=== PATIENT | female | born 1950 | race Caucasian/White ===

== ENCOUNTER 2016-05-28 15:13 | Emergency (ER) | payer MEDICARE ==
[~2016-05-28] VITALS: Ht 154.9 cm; Wt 100.0 kg
[~2016-05-28 15:13] MED LIST: ACYCLOVIR800 MG PO; AMOXICILLIN 50500 MG PO; ANTIVERT 25MG25 MG PO; ASPI325T6 PO; ASPIRIN 32325 MG/TAB PO; ASPIRIN 81M81 MG/TA2 PO; ASPIRIN E.C. 8181 MG PO; BACTRIM DS 8001 TAB PO; BENTYL 10MG10 MG/CAP; BENTYL 10MG10 MG/CAP PO; BENTYL 20MG20 MG/TAB PO; BENTYL20 MG PO; CEFTIN500 MG PO; CELEBREX200 MG PO; CELEBREX50 MG PO; CENTRUM SILVER1 CTB PO; CEPHALEXIN500 M1 PO; CIPRO 500MG TA500 MG PO; CLINDAMYCIN150 MG PO; COLCHICINE0.6 MG PO; DELZICOL; DELZICOL PO; DIFLUCAN 100MG100 MG PO; DUO-KAPS1 CAP PO; EFFIENT10 MG PO; EFFIENT5 MG; ENDOCORT; FLAGYL500 MG PO; FLEXERIL10 MG PO; IMDUR 30MG30 MG/TAB PO; IMDUR 60MG60 MG/TAB PO; IMODIUM 2MG CAPS2 MG PO; LEVAQUIN 5500 MG/TA1 PO; LEVAQUIN 750MG750 M1 PO; LIPITOR 80MG80 MG PO; LOPRESSOR 225 MG/TAB PO; LORTAB 5/500 501 TAB PO; LORTAB 7.5/5001 TAB PO; LYRICA; LYRICA 150MG C150 MG PO; LYRICA300 MG; LYRICA300 MG PO; MEDROL 4MG DOSPA4 MG PO; MS CONTIN 115 MG/TAB PO; NAPROSYN PO; NEURONTIN100 MG/CAP PO; NITROQUICK0.4 MG SL; NITROSTAT0.4 MG/TAB SL; NO HOME MEDICATIONS; NORCO 325 MG-51 TAB PO; NORCO 325 MG-7.1 TAB PO; OXYBUTYNIN5 MG PO; PAMELOR 25MG25 MG PO; PAMELOR50 MG PO; PERCOCET 325 MG1 TA2 PO; PERCOCET 325 MG1 TA3 PO; PERCOCET 325 MG1 TAB PO; PERCOCET 5/321 UDTAB PO; PHENERGAN 25 TA25 MG PO; PHENERGAN25 MG RC; PLAVIX 75MG TAB75 MG PO; PREDNISONE10 MG; PREDNISONE10 MG PO; PREDNISONE20 MG PO; PRIL40 PO; PRINZIDE 25 MG-1 TAB PO; PROMETHAZINE12.5 M5 PO; PYRIDIUM200 M1 PO; RANEXA 500MG T500 MG PO; REGLAN 10MG10 MG/TAB PO; SILVADENE CREAM1 TU TP; ULTRAM; ULTRAM 50MG TAB50 MG PO; ULTRAM100 MG PO; ULTRAM50 MG PO; VALIUM 5MG T5 MG/TAB PO; VIT B COMPLEX PO; VITAMIN B121000 MC2 PO; VOLTAREN1% TP; ZESTRIL 10MG10 MG; ZESTRIL 5MG5 MG PO; ZOFRAN 4MG T4 MG/TAB PO; ZOFRAN ODT4 MG PO; ZOFRAN8 MG PO; ZOVIRAX800 MG PO; cholesterol med PO
[2016-05-28 16:53] LABS: BASO # 0.1 (0.0-0.2); BASO % 0.4 % (0.0-2.0); EOS # 0.1 (0.0-0.7); EOS % 0.2 % (0-4.0); GRAN # 16.5 (1.4-6.5); GRAN % 68.5 % (42.2-75.2); HEMATOCRIT 43.8 % (37.0-47.0); HEMOGLOBIN 14.6 g/dl (12.5-16.0); LYMPH # 5.9 (1.2-3.4); LYMPH % 24.3 % (20.0-51.0); MEAN CELL VOLUME 89 fl (80.0-100.0); MEAN CORPUSCULAR HEMOGLOBIN 30 pg (27.0-31.0); MEAN CORPUSCULAR HGB CONC 33 g/dl (33.0-37.0); MEAN PLATELET VOLUME 9.5 fl (7.4-10.4); MONO # 1.4 (0.1-0.6); MONO % 5.9 % (1.7-9.3); PLATELET COUNT 527 K/mm3 (130-400); RED BLOOD COUNT 4.95 M/mm3 (4.10-5.30); REDCELL DISTRIBUTION WIDTH-CV 14.6 % (11.5-14.5)
[2016-05-28 16:55] LABS: WHITE BLOOD COUNT 24.2 K/mm3 (4.8-10.8)
[2016-05-28 17:13] LABS: ADJUSTED CALCIUM 9.5 mg/dL (8.4-10.2); ALBUMIN 4.7 gm/dL (3.5-5.0); BILIRUBIN,TOTAL 0.6 mg/dL (0.0-1.0); CALCIUM 10.1 mg/dL (8.4-10.2); CREATININE, serum 1.42 mg/dL (0.52-1.25); POTASSIUM 3.2 mmol/L (3.4-5.0); TOTAL PROTEIN 8.3 gm/dL (6.4-8.2)
[2016-05-28 17:22] LABS: PH 6 (5-8); URINE APPEARANCE Hazy; URINE BACTERIA Rare /hpf; URINE BILIRUBIN Negative (NEGATIVE); URINE BLOOD Negative (NEGATIVE); URINE COLOR Yellow; URINE GLUCOSE Negative (NEGATIVE); URINE KETONE Negative (NEGATIVE); URINE UROBILINOGEN Negative (NEGATIVE)
[2016-05-28] MEDS ORDERED: PERCOCET 325 MG1 TA2 PO (18:41)
[2016-05-28] MEDS ORDERED: ULTRAM 50MG TAB50 MG PO (18:41)
[2016-05-28] MEDS ORDERED: PREDNISONE20 MG PO (18:41)
[2016-05-28] MEDS ORDERED: PHENERGAN 25 TA25 MG PO (18:50)
[2016-05-28] MEDS ORDERED: PHENERGAN25 MG RC (18:50)
[2016-05-28 20:53] VITALS: BP 144/104; PULSE 85; TEMP 98.9
== END 2016-05-28 21:05 | disposition home or self-care (01) ==
LOC: COL.ER 15:13
PROVIDERS: Emergency Medicine
DX: K50.919 Crohn's disease, unspecified, with unspecified complications (principal)
CPT/HCPCS: J1170; J2550; J2930; J7030; Q9967

== ENCOUNTER 2016-07-24 15:07 | Emergency (ER) | payer MEDICARE ==
[~2016-07-24] VITALS: Ht 154.9 cm; Wt 100.0 kg
[2016-07-24 15:13] VITALS: TEMP 98.2
[2016-07-24] MEDS ORDERED: ULTRAM 50MG TAB50 MG PO ×2 (16:01→18:27)
[2016-07-24] MEDS ORDERED: PRINZIDE 25 MG-1 TAB PO (16:01)
[2016-07-24] MEDS ORDERED: LIPITOR 80MG80 MG PO (16:01)
[2016-07-24] MEDS ORDERED: LOPRESSOR 550 MG/TAB PO (16:01)
[2016-07-24 16:03] LABS: HEMATOCRIT 38.2 % (37.0-47.0); HEMOGLOBIN 12.7 g/dl (12.5-16.0); MEAN CELL VOLUME 90 fl (80.0-100.0); MEAN CORPUSCULAR HEMOGLOBIN 30 pg (27.0-31.0); MEAN CORPUSCULAR HGB CONC 33 g/dl (33.0-37.0); MEAN PLATELET VOLUME 9.8 fl (7.4-10.4); PLATELET COUNT 418 K/mm3 (130-400); RED BLOOD COUNT 4.24 M/mm3 (4.10-5.30); REDCELL DISTRIBUTION WIDTH-CV 14.4 % (11.5-14.5)
[2016-07-24 16:13] LABS: ADJUSTED CALCIUM 9.6 mg/dL (8.4-10.2); BILIRUBIN,TOTAL 0.5 mg/dL (0.0-1.0); C-REACTIVE PROTEIN 1.6 mg/dL (0.0-0.9); CALCIUM 9.6 mg/dL (8.4-10.2); CREATININE, serum 1.59 mg/dL (0.52-1.25); POTASSIUM 3.7 mmol/L (3.4-5.0); TOTAL PROTEIN 7.4 gm/dL (6.4-8.2)
[2016-07-24 16:14] LABS: ADD PATHOLOGY DIFF REVIEW NO; WHITE BLOOD COUNT 23.8 K/mm3 (4.8-10.8)
[2016-07-24] MEDS ORDERED: EFFIENT10 MG PO (16:18)
[2016-07-24] MEDS ORDERED: ASACOL HD800 MG PO (16:18)
[2016-07-24 16:27] LABS: ERYTHROCYTE SEDIMENTATION RATE 22 mm/hr (0-30)
[2016-07-24 16:31] LABS: BAND 1 % (0-10); NEUTROPHILS 76 % (42.0-75.2); TOTAL CELLS COUNTED 101
[2016-07-24 16:32] LABS: ANISOCYTOSIS 1+; HYPOCHROMIA 1+
[2016-07-24 17:08] LABS: PH 5 (5-8); URINE APPEARANCE Hazy; URINE BACTERIA Rare /hpf; URINE BILIRUBIN Negative (NEGATIVE); URINE BLOOD Negative (NEGATIVE); URINE COLOR Yellow; URINE GLUCOSE Negative (NEGATIVE); URINE KETONE Negative (NEGATIVE); URINE RBC 0-2 /hpf; URINE UROBILINOGEN Negative (NEGATIVE)
[2016-07-24] MEDS ORDERED: PHENERGAN 25 TA25 MG PO (18:27)
[2016-07-24] MEDS ORDERED: CIPRO 500MG TA500 MG PO (18:27)
[2016-07-24] MEDS ORDERED: FLAGYL500 MG PO (18:27)
[2016-07-24 18:40] VITALS: BP 133/84; PULSE 90
== END 2016-07-24 18:40 | disposition home or self-care (01) ==
LOC: COL.ER 15:07
PROVIDERS: Emergency Medicine
DX: N39.0 Urinary tract infection, site not specified (principal); B96.1 Klebsiella pneumoniae [K. pneumoniae] as the cause of diseases classified elsewhere; K50.90 Crohn's disease, unspecified, without complications
CPT/HCPCS: J1170; J1200; J2405; J7030

== ENCOUNTER 2016-08-14 20:32 | Emergency (ER) | payer MEDICARE ==
[~2016-08-14] VITALS: Ht 154.9 cm; Wt 95.5 kg
[~2016-08-14 20:32] MED LIST changes: +ASACOL HD800 MG PO; +LOPRESSOR 550 MG/TAB PO
[2016-08-14 20:41] VITALS: TEMP 99.2
[2016-08-14 22:01] LABS: PH 5 (5-8); URINE APPEARANCE Cloudy; URINE BACTERIA Rare /hpf; URINE BILIRUBIN Negative (NEGATIVE); URINE BLOOD Negative (NEGATIVE); URINE COLOR Yellow; URINE GLUCOSE Negative (NEGATIVE); URINE KETONE Negative (NEGATIVE); URINE UROBILINOGEN Negative (NEGATIVE)
[2016-08-14 22:05] LABS: BASO # 0.1 (0.0-0.2); BASO % 0.6 % (0.0-2.0); EOS # 0.2 (0.0-0.7); EOS % 1.1 % (0-4.0); GRAN # 9.9 (1.4-6.5); GRAN % 66.4 % (42.2-75.2); HEMATOCRIT 40.4 % (37.0-47.0); HEMOGLOBIN 13.6 g/dl (12.5-16.0); LYMPH # 3.8 (1.2-3.4); LYMPH % 25.2 % (20.0-51.0); MEAN CELL VOLUME 89 fl (80.0-100.0); MEAN CORPUSCULAR HEMOGLOBIN 30 pg (27.0-31.0); MEAN CORPUSCULAR HGB CONC 34 g/dl (33.0-37.0); MEAN PLATELET VOLUME 9.8 fl (7.4-10.4); MONO % 6.4 % (1.7-9.3); PLATELET COUNT 400 K/mm3 (130-400); RED BLOOD COUNT 4.52 M/mm3 (4.10-5.30); REDCELL DISTRIBUTION WIDTH-CV 14.3 % (11.5-14.5); WHITE BLOOD COUNT 14.9 K/mm3 (4.8-10.8)
[2016-08-14 22:31] LABS: ADJUSTED CALCIUM 9.2 mg/dL (8.4-10.2); ALBUMIN 4.4 gm/dL (3.5-5.0); BILIRUBIN,TOTAL 0.7 mg/dL (0.0-1.0); C-REACTIVE PROTEIN 1.7 mg/dL (0.0-0.9); CALCIUM 9.5 mg/dL (8.4-10.2); CREATININE, serum 1.2 mg/dL (0.52-1.25); POTASSIUM 3.7 mmol/L (3.4-5.0); TOTAL PROTEIN 7.5 gm/dL (6.4-8.2)
[2016-08-14] MEDS ORDERED: FLAGYL 250250 MG/TAB PO (22:57)
[2016-08-14] MEDS ORDERED: CIPRO 500MG TA500 MG PO (22:57)
[2016-08-14] MEDS ORDERED: ULTRAM 50MG TAB50 MG PO (22:57)
[2016-08-14 23:18] VITALS: BP 121/71; PULSE 102
== END 2016-08-14 23:18 | disposition home or self-care (01) ==
LOC: COL.ER 20:32
PROVIDERS: Emergency Medicine
DX: R10.31 Right lower quadrant pain (principal); K50.90 Crohn's disease, unspecified, without complications; I25.10 Atherosclerotic heart disease of native coronary artery without angina pectoris; I10 Essential (primary) hypertension
CPT/HCPCS: J1170; J2405; J7030

== ENCOUNTER 2016-09-13 16:06 | Emergency (ER) | payer MEDICARE ==
[~2016-09-13] VITALS: Ht 154.9 cm; Wt 95.5 kg
[~2016-09-13 16:06] MED LIST changes: +FLAGYL 250250 MG/TAB PO
[2016-09-13 16:08] VITALS: TEMP 98.6
[2016-09-13] MEDS ORDERED: BENADRYL25 M2 PO (16:40)
[2016-09-13 17:00] LABS: ADD PATHOLOGY DIFF REVIEW NO
[2016-09-13 17:11] LABS: HEMATOCRIT 40.4 % (37.0-47.0); HEMOGLOBIN 13.6 g/dl (12.5-16.0); MEAN CELL VOLUME 89 fl (80.0-100.0); MEAN CORPUSCULAR HEMOGLOBIN 30 pg (27.0-31.0); MEAN CORPUSCULAR HGB CONC 34 g/dl (33.0-37.0); MEAN PLATELET VOLUME 9.6 fl (7.4-10.4); PLATELET COUNT 420 K/mm3 (130-400); RED BLOOD COUNT 4.54 M/mm3 (4.10-5.30); REDCELL DISTRIBUTION WIDTH-CV 14.2 % (11.5-14.5); WHITE BLOOD COUNT 14.9 K/mm3 (4.8-10.8)
[2016-09-13 17:18] LABS: ADJUSTED CALCIUM 8.9 mg/dL (8.4-10.2); ALANINE AMINOTRANSFERASE 19 U/L (9-52); ALBUMIN 4.4 gm/dL (3.5-5.0); ALKALINE PHOSPHATASE 100 U/L (50-136); ANION GAP 13 mmol/L (7-16); BILIRUBIN,TOTAL 0.6 mg/dL (0.0-1.0); BLOOD UREA NITROGEN 18 mg/dL (7-17); C-REACTIVE PROTEIN 2.6 mg/dL (0.0-0.9); CALCIUM 9.2 mg/dL (8.4-10.2); CARBON DIOXIDE 20 mmol/L (22-30); CHLORIDE 109 mmol/L (98-107); CREATININE, serum 1.11 mg/dL (0.52-1.25); GLUCOSE 96 mg/dL (74-106); MAGNESIUM 2.2 mg/dL (1.6-2.3); POTASSIUM 3.7 mmol/L (3.4-5.0); SODIUM 142 mmol/L (137-145); TOTAL PROTEIN 7.5 gm/dL (6.4-8.2)
[2016-09-13 17:29] LABS: BASOPHIL 1 % (0-2); EOSINOPHIL 1 % (0-4); NEUTROPHILS 78 % (42.0-75.2); TOTAL CELLS COUNTED 100
[2016-09-13 17:30] LABS: ANISOCYTOSIS 1+; ROULEAUX 1+
[2016-09-13 17:38] LABS: PH 6 (5-8); URINE APPEARANCE Hazy; URINE BACTERIA Rare /hpf; URINE BILIRUBIN Negative (NEGATIVE); URINE BLOOD 1+ (NEGATIVE); URINE COLOR Yellow; URINE GLUCOSE Negative (NEGATIVE); URINE KETONE Negative (NEGATIVE); URINE UROBILINOGEN Negative (NEGATIVE)
[2016-09-13 17:39] LABS: ERYTHROCYTE SEDIMENTATION RATE 21 mm/hr (0-30)
[2016-09-13 17:48] VITALS: BP 135/84
[2016-09-13] MEDS ORDERED: ANTIVERT 25MG25 MG PO (17:49)
[2016-09-13] MEDS ORDERED: PHENERGAN 25 TA25 MG PO (17:49)
[2016-09-13 18:35] LABS: TROPONIN-I < 0.012 ng/mL (0.000-0.034)
[2016-09-13 19:55] VITALS: PULSE 94
== END 2016-09-13 20:10 | disposition home or self-care (01) ==
LOC: COL.ER 16:06
PROVIDERS: Emergency Medicine
DX: R10.31 Right lower quadrant pain (principal); G89.29 Other chronic pain; R00.2 Palpitations; K50.90 Crohn's disease, unspecified, without complications; R42 Dizziness and giddiness
CPT/HCPCS: J1200; J2550; J3010; J7030

== ENCOUNTER 2016-09-18 14:16 | Emergency (ER) | payer MEDICARE ==
[~2016-09-18] VITALS: Ht 154.9 cm; Wt 100.0 kg
[~2016-09-18 14:16] MED LIST changes: +BENADRYL25 M2 PO
[2016-09-18 14:22] VITALS: TEMP 99.4
[2016-09-18] MEDS ORDERED: IMODIUM 2MG CAPS2 MG PO (14:50)
[2016-09-18] MEDS ORDERED: ASPIRIN 81M81 MG/TA2 PO (14:53)
[2016-09-18 15:50] LABS: BASO # 0.1 (0.0-0.2); BASO % 0.6 % (0.0-2.0); EOS # 0.2 (0.0-0.7); EOS % 1.6 % (0-4.0); GRAN # 10.3 (1.4-6.5); GRAN % 70.6 % (42.2-75.2); HEMATOCRIT 41.1 % (37.0-47.0); HEMOGLOBIN 13.7 g/dl (12.5-16.0); LYMPH # 3.1 (1.2-3.4); LYMPH % 21.5 % (20.0-51.0); MEAN CELL VOLUME 89 fl (80.0-100.0); MEAN CORPUSCULAR HEMOGLOBIN 30 pg (27.0-31.0); MEAN CORPUSCULAR HGB CONC 33 g/dl (33.0-37.0); MEAN PLATELET VOLUME 9.4 fl (7.4-10.4); MONO # 0.8 (0.1-0.6); MONO % 5.2 % (1.7-9.3); PLATELET COUNT 415 K/mm3 (130-400); REDCELL DISTRIBUTION WIDTH-CV 14.3 % (11.5-14.5); WHITE BLOOD COUNT 14.6 K/mm3 (4.8-10.8)
[2016-09-18 16:01] LABS: ADJUSTED CALCIUM 8.6 mg/dL (8.4-10.2); ALBUMIN 4.4 gm/dL (3.5-5.0); BILIRUBIN,TOTAL 0.7 mg/dL (0.0-1.0); C-REACTIVE PROTEIN 2.9 mg/dL (0.0-0.9); CALCIUM 8.9 mg/dL (8.4-10.2); CREATININE, serum 1.04 mg/dL (0.52-1.25); POTASSIUM 3.5 mmol/L (3.4-5.0); TOTAL PROTEIN 7.7 gm/dL (6.4-8.2)
[2016-09-18] MEDS ORDERED: PREDNISONE20 MG PO (16:37)
[2016-09-18] MEDS ORDERED: PHENERGAN 25 TA25 MG PO (16:39)
[2016-09-18] MEDS ORDERED: PHENERGAN25 MG RC (16:39)
[2016-09-18 17:44] VITALS: BP 144/89; PULSE 80
== END 2016-09-18 17:47 | disposition home or self-care (01) ==
LOC: COL.ER 14:16
PROVIDERS: Emergency Medicine
DX: K50.90 Crohn's disease, unspecified, without complications (principal); R11.2 Nausea with vomiting, unspecified; I10 Essential (primary) hypertension; I25.10 Atherosclerotic heart disease of native coronary artery without angina pectoris; K22.70 Barrett's esophagus without dysplasia; Z95.5 Presence of coronary angioplasty implant and graft
CPT/HCPCS: J1170; J2405; J2930; J7030

== ENCOUNTER 2016-10-06 14:34 | Emergency (ER) | payer MEDICARE ==
[~2016-10-06] VITALS: Ht 154.9 cm; Wt 100.0 kg
[2016-10-06 14:36] VITALS: TEMP 98.2
[2016-10-06] MEDS ORDERED: ASPIRIN 32325 MG/TAB PO (14:49)
[2016-10-06] MEDS ORDERED: ULTRAM 50MG TAB50 MG PO (14:50)
[2016-10-06 15:16] LABS: PH 6 (5-8); URINE APPEARANCE Clear; URINE BACTERIA Rare /hpf; URINE BILIRUBIN Negative (NEGATIVE); URINE BLOOD Negative (NEGATIVE); URINE COLOR Yellow; URINE GLUCOSE Negative (NEGATIVE); URINE KETONE Negative (NEGATIVE); URINE RBC 0-2 /hpf; URINE UROBILINOGEN Negative (NEGATIVE)
[2016-10-06 15:43] LABS: HEMATOCRIT 41.6 % (37.0-47.0); HEMOGLOBIN 13.8 g/dl (12.5-16.0); MEAN CELL VOLUME 89 fl (80.0-100.0); MEAN CORPUSCULAR HEMOGLOBIN 30 pg (27.0-31.0); MEAN CORPUSCULAR HGB CONC 33 g/dl (33.0-37.0); MEAN PLATELET VOLUME 9.5 fl (7.4-10.4); PLATELET COUNT 439 K/mm3 (130-400); RED BLOOD COUNT 4.66 M/mm3 (4.10-5.30); REDCELL DISTRIBUTION WIDTH-CV 14.4 % (11.5-14.5)
[2016-10-06 15:45] LABS: ADD PATHOLOGY DIFF REVIEW NO
[2016-10-06 16:06] LABS: BAND 1 % (0-10); NEUTROPHILS 85 % (42.0-75.2); TOTAL CELLS COUNTED 100
[2016-10-06 16:08] LABS: ANISOCYTOSIS 1+
[2016-10-06 16:12] LABS: ADJUSTED CALCIUM 9.5 mg/dL (8.4-10.2); ALBUMIN 4.4 gm/dL (3.5-5.0); BILIRUBIN,TOTAL 0.6 mg/dL (0.0-1.0); CALCIUM 9.8 mg/dL (8.4-10.2); CREATININE, serum 1.57 mg/dL (0.52-1.25); TOTAL PROTEIN 7.5 gm/dL (6.4-8.2)
[2016-10-06] MEDS ORDERED: PHENERGAN 25 TA25 MG PO (16:59)
[2016-10-06 18:21] VITALS: BP 144/81; PULSE 63
== END 2016-10-06 18:22 | disposition home or self-care (01) ==
LOC: COL.ER 14:34
PROVIDERS: Emergency Medicine
DX: R10.11 Right upper quadrant pain (principal); R11.10 Vomiting, unspecified; R19.7 Diarrhea, unspecified
CPT/HCPCS: J2405; J2550; J7030

== ENCOUNTER 2016-10-16 22:13 | Observation (INO) | payer MEDICARE ==
[~2016-10-16] VITALS: Ht 154.9 cm; Wt 97.9 kg
[2016-10-16 22:50] LABS: HEMATOCRIT 43.3 % (37.0-47.0); HEMOGLOBIN 14.5 g/dl (12.5-16.0); MEAN CELL VOLUME 88 fl (80.0-100.0); MEAN CORPUSCULAR HEMOGLOBIN 30 pg (27.0-31.0); MEAN CORPUSCULAR HGB CONC 34 g/dl (33.0-37.0); MEAN PLATELET VOLUME 9.5 fl (7.4-10.4); PLATELET COUNT 487 K/mm3 (130-400); REDCELL DISTRIBUTION WIDTH-CV 14.7 % (11.5-14.5)
[2016-10-16 22:56] LABS: WHITE BLOOD COUNT 21.6 K/mm3 (4.8-10.8)
[2016-10-16 22:57] LABS: ADD PATHOLOGY DIFF REVIEW NO; INR 1.1 (0.8-3.0); PROTHROMBIN TIME 11.8 SECONDS (9.7-12.8)
[2016-10-16 23:00] LABS: PARTIAL THROMBOPLASTIN TIME 30.8 SECONDS (26.0-37.0)
[2016-10-16 23:06] LABS: ADJUSTED CALCIUM 9.8 mg/dL (8.4-10.2); ALANINE AMINOTRANSFERASE 42 U/L (9-52); ALKALINE PHOSPHATASE 93 U/L (50-136); ANION GAP 17 mmol/L (7-16); BILIRUBIN,TOTAL 0.7 mg/dL (0.0-1.0); BLOOD UREA NITROGEN 35 mg/dL (7-17); CALCIUM 9.8 mg/dL (8.4-10.2); CARBON DIOXIDE 18 mmol/L (22-30); CHLORIDE 105 mmol/L (98-107); CREATININE, serum 1.22 mg/dL (0.52-1.25); GLUCOSE 101 mg/dL (74-106); LIPASE 272 U/L (23-300); POTASSIUM 3.7 mmol/L (3.4-5.0); SODIUM 139 mmol/L (137-145); TOTAL PROTEIN 6.8 gm/dL (6.4-8.2)
[2016-10-16 23:19] LABS: B-TYPE NATRIURETIC PEPTIDE 171 pg/mL (0-125)
[2016-10-16 23:20] LABS: TROPONIN-I < 0.012 ng/mL (0.000-0.034)
[2016-10-16 23:21] LABS: EOSINOPHIL 2 % (0-4); NEUTROPHILS 62 % (42.0-75.2); TOTAL CELLS COUNTED 100
[2016-10-16 23:22] LABS: PLATELET ESTIMATE INCREASED (NORMAL)
[2016-10-16 23:38] LABS: PH 5 (5-8); SQUAMOUS EPITHELIAL 0-2 /hpf; URINE APPEARANCE Clear; URINE BACTERIA None Seen /hpf; URINE BILIRUBIN Negative (NEGATIVE); URINE BLOOD Negative (NEGATIVE); URINE COLOR Yellow; URINE GLUCOSE Negative (NEGATIVE); URINE KETONE Negative (NEGATIVE); URINE RBC 0-2 /hpf; URINE UROBILINOGEN Negative (NEGATIVE); URINE WBC 0-2 /hpf
[2016-10-17] VITALS (106 sets, daily range): BP systolic 93–141; BP diastolic 70–79; PULSE 85–111; TEMP 97.3–98.3; O2SAT 94–100
[2016-10-17 00:53] LABS: MAGNESIUM 2.3 mg/dL (1.6-2.3)
[2016-10-17] MEDS ORDERED: ASACOL HD800 MG PO (01:10)
[2016-10-17 07:28] LABS: TROPONIN-I < 0.012 ng/mL (0.000-0.034)
[2016-10-17 07:29] LABS: CHOLESTEROL 164 mg/dL (120-200); HDL CHOLESTEROL 50 mg/dL; LDL CHOLESTEROL 75 mg/dL; TRIGLYCERIDE 194 mg/dL
[2016-10-17] MEDS ORDERED: PROTONIX 40MG T40 MG PO (11:05)
[2016-10-17] MEDS ORDERED: PERCOCET 325 MG1 TA2 PO (11:06)
[2016-10-17] MEDS ORDERED: ULTRAM 50MG TAB50 MG PO (14:38)
== END 2016-10-17 16:05 | disposition home or self-care (01) ==
LOC: COL.ER 22:13 → IMCU 10-17 00:09 → ICU 10-17 00:09 → IMCU 10-17 02:18
PROVIDERS: Emergency Medicine; Family Medicine
DX: K20.9 Esophagitis, unspecified (principal); R00.0 Tachycardia, unspecified; E66.9 Obesity, unspecified; K50.90 Crohn's disease, unspecified, without complications; I10 Essential (primary) hypertension; I25.10 Atherosclerotic heart disease of native coronary artery without angina pectoris; E78.5 Hyperlipidemia, unspecified; M19.90 Unspecified osteoarthritis, unspecified site; K22.70 Barrett's esophagus without dysplasia; Z95.5 Presence of coronary angioplasty implant and graft
CPT/HCPCS: A9502; G0378; J2270; J2405; J2785; J7030; Q9967

== ENCOUNTER 2016-12-18 14:01 | Emergency (ER) | payer MEDICARE ==
[~2016-12-18] VITALS: Ht 154.9 cm; Wt 98.4 kg
[~2016-12-18 14:01] MED LIST changes: +PROTONIX 40MG T40 MG PO
[2016-12-18 14:11] VITALS: TEMP 98.9
[2016-12-18 15:13] LABS: BASO # 0.1 (0.0-0.2); BASO % 0.6 % (0.0-2.0); EOS # 0.2 (0.0-0.7); EOS % 1.2 % (0-4.0); GRAN % 71.6 % (42.2-75.2); HEMATOCRIT 42.4 % (37.0-47.0); HEMOGLOBIN 14.1 g/dl (12.5-16.0); LYMPH % 19.7 % (20.0-51.0); MEAN CELL VOLUME 89 fl (80.0-100.0); MEAN CORPUSCULAR HEMOGLOBIN 30 pg (27.0-31.0); MEAN CORPUSCULAR HGB CONC 33 g/dl (33.0-37.0); MEAN PLATELET VOLUME 9.7 fl (7.4-10.4); MONO % 6.4 % (1.7-9.3); PLATELET COUNT 433 K/mm3 (130-400); RED BLOOD COUNT 4.78 M/mm3 (4.10-5.30); REDCELL DISTRIBUTION WIDTH-CV 15.3 % (11.5-14.5); WHITE BLOOD COUNT 15.4 K/mm3 (4.8-10.8)
[2016-12-18 15:18] LABS: PH 5 (5-8); SQUAMOUS EPITHELIAL 20-50 /hpf; URINE APPEARANCE Cloudy; URINE BACTERIA Moderate /hpf; URINE BILIRUBIN Negative (NEGATIVE); URINE BLOOD Negative (NEGATIVE); URINE COLOR Yellow; URINE GLUCOSE Negative (NEGATIVE); URINE KETONE Negative (NEGATIVE); URINE RBC 0-2 /hpf; URINE UROBILINOGEN Negative (NEGATIVE)
[2016-12-18 15:25] LABS: ADJUSTED CALCIUM 9.3 mg/dL (8.4-10.2); ALBUMIN 4.4 gm/dL (3.5-5.0); BILIRUBIN,TOTAL 0.7 mg/dL (0.0-1.0); C-REACTIVE PROTEIN 2.8 mg/dL (0.0-0.9); CALCIUM 9.6 mg/dL (8.4-10.2); CREATININE, serum 1.51 mg/dL (0.52-1.25); POTASSIUM 3.9 mmol/L (3.4-5.0); TOTAL PROTEIN 7.7 gm/dL (6.4-8.2)
[2016-12-18] MEDS ORDERED: PHENERGAN 25 TA25 MG PO (17:04)
[2016-12-18 18:14] VITALS: BP 114/84; PULSE 91
== END 2016-12-18 18:10 | disposition home or self-care (01) ==
LOC: COL.ER 14:01
PROVIDERS: Emergency Medicine
DX: R10.11 Right upper quadrant pain (principal); Z87.19 Personal history of other diseases of the digestive system; Z90.710 Acquired absence of both cervix and uterus; Z90.49 Acquired absence of other specified parts of digestive tract; Z90.89 Acquired absence of other organs; Z79.82 Long term (current) use of aspirin
CPT/HCPCS: J1100; J1170; J1200; J2060; J2405; J2550; J7030

== ENCOUNTER 2017-01-10 13:31 | Observation (INO) | payer MEDICARE ==
[~2017-01-10] VITALS: Ht 154.9 cm; Wt 98.2 kg
[2017-01-10 16:12] LABS: HEMATOCRIT 45.9 % (37.0-47.0); HEMOGLOBIN 15.4 g/dl (12.5-16.0); MEAN CELL VOLUME 88 fl (80.0-100.0); MEAN CORPUSCULAR HEMOGLOBIN 29 pg (27.0-31.0); MEAN CORPUSCULAR HGB CONC 34 g/dl (33.0-37.0); MEAN PLATELET VOLUME 9.9 fl (7.4-10.4); PLATELET COUNT 482 K/mm3 (130-400); RED BLOOD COUNT 5.23 M/mm3 (4.10-5.30); REDCELL DISTRIBUTION WIDTH-CV 15.3 % (11.5-14.5)
[2017-01-10 16:15] LABS: ADD PATHOLOGY DIFF REVIEW NO; WHITE BLOOD COUNT 21.8 K/mm3 (4.8-10.8)
[2017-01-10 16:23] LABS: ADJUSTED CALCIUM 9.6 mg/dL (8.4-10.2); ALBUMIN 4.8 gm/dL (3.5-5.0); BILIRUBIN,TOTAL 0.8 mg/dL (0.0-1.0); C-REACTIVE PROTEIN 1.9 mg/dL (0.0-0.9); CALCIUM 10.2 mg/dL (8.4-10.2); CREATININE, serum 1.32 mg/dL (0.52-1.25); POTASSIUM 3.9 mmol/L (3.4-5.0); TOTAL PROTEIN 8.2 gm/dL (6.4-8.2)
[2017-01-10 16:33] LABS: BAND 1 % (0-10); NEUTROPHILS 81 % (42.0-75.2); TOTAL CELLS COUNTED 100
[2017-01-10 16:34] LABS: PLATELET ESTIMATE INCREASED (NORMAL)
[2017-01-10 21:26] LABS: PH 5 (5-8); SQUAMOUS EPITHELIAL 0-2 /hpf; URINE APPEARANCE Hazy; URINE BACTERIA Rare /hpf; URINE BILIRUBIN Negative (NEGATIVE); URINE BLOOD 1+ (NEGATIVE); URINE COLOR Yellow; URINE GLUCOSE Negative (NEGATIVE); URINE KETONE Negative (NEGATIVE); URINE RBC 0-2 /hpf; URINE UROBILINOGEN Negative (NEGATIVE)
[2017-01-10 21:49] VITALS: BP 114/81; PULSE 73; TEMP 98.2
[2017-01-10 23:31] VITALS: BP 130/91; PULSE 67; TEMP 97.9
[2017-01-11 03:35] VITALS: BP 126/76; PULSE 73; TEMP 98.2
[2017-01-11 07:51] VITALS: BP 143/77; PULSE 77; TEMP 97.4
[2017-01-11 11:23] LABS: HEMATOCRIT 38.7 % (37.0-47.0); MEAN CELL VOLUME 90 fl (80.0-100.0); MEAN CORPUSCULAR HGB CONC 33 g/dl (33.0-37.0); MEAN PLATELET VOLUME 10.2 fl (7.4-10.4); RED BLOOD COUNT 4.29 M/mm3 (4.10-5.30); REDCELL DISTRIBUTION WIDTH-CV 15.6 % (11.5-14.5)
[2017-01-11 11:29] LABS: HEMOGLOBIN 12.7 g/dl (12.5-16.0); MEAN CORPUSCULAR HEMOGLOBIN 30 pg (27.0-31.0); PLATELET COUNT 377 K/mm3 (130-400); WHITE BLOOD COUNT 26.9 K/mm3 (4.8-10.8)
[2017-01-11 11:30] LABS: ADD PATHOLOGY DIFF REVIEW NO
[2017-01-11 11:31] LABS: ADJUSTED CALCIUM 8.5 mg/dL (8.4-10.2); ALBUMIN 3.9 gm/dL (3.5-5.0); BILIRUBIN,TOTAL 0.5 mg/dL (0.0-1.0); CALCIUM 8.4 mg/dL (8.4-10.2); CREATININE, serum 0.98 mg/dL (0.52-1.25); POTASSIUM 4.2 mmol/L (3.4-5.0); TOTAL PROTEIN 6.7 gm/dL (6.4-8.2)
[2017-01-11 12:13] VITALS: BP 113/60; PULSE 65; TEMP 97.4
[2017-01-11 12:56] LABS: BAND 7 % (0-10); EOSINOPHIL 1 % (0-4)
[2017-01-11 12:57] LABS: TOTAL CELLS COUNTED 100
[2017-01-11 12:58] LABS: NEUTROPHILS 81 % (42.0-75.2)
[2017-01-11 15:47] VITALS: BP 124/72; PULSE 71; TEMP 98.2
[2017-01-11 19:17] VITALS: BP 132/65; PULSE 69; TEMP 98
[2017-01-11 23:20] VITALS: BP 114/62; PULSE 70; TEMP 98.9
[2017-01-12 03:51] VITALS: BP 100/66; PULSE 62; TEMP 97.4
[2017-01-12 07:28] VITALS: BP 122/62; PULSE 70; TEMP 97.3
[2017-01-12 10:32] LABS: CALCIUM 8.1 mg/dL (8.4-10.2); CREATININE, serum 0.97 mg/dL (0.52-1.25); POTASSIUM 4.2 mmol/L (3.4-5.0)
[2017-01-12 10:56] VITALS: BP 117/67; PULSE 62; TEMP 97.8
[2017-01-12 11:31] LABS: BASO # 0.1 (0.0-0.2); BASO % 0.4 % (0.0-2.0); EOS # 0.2 (0.0-0.7); EOS % 1.2 % (0-4.0); GRAN # 11.4 (1.4-6.5); GRAN % 64.5 % (42.2-75.2); HEMATOCRIT 39.3 % (37.0-47.0); HEMOGLOBIN 12.4 g/dl (12.5-16.0); LYMPH # 4.6 (1.2-3.4); LYMPH % 26.2 % (20.0-51.0); MEAN CELL VOLUME 93 fl (80.0-100.0); MEAN CORPUSCULAR HEMOGLOBIN 29 pg (27.0-31.0); MEAN CORPUSCULAR HGB CONC 32 g/dl (33.0-37.0); MEAN PLATELET VOLUME 10.9 fl (7.4-10.4); MONO # 1.3 (0.1-0.6); MONO % 7.2 % (1.7-9.3); PLATELET COUNT 305 K/mm3 (130-400); RED BLOOD COUNT 4.23 M/mm3 (4.10-5.30); WHITE BLOOD COUNT 17.6 K/mm3 (4.8-10.8)
[2017-01-12 12:04] LABS: CALCIUM 8.2 mg/dL (8.4-10.2); CREATININE, serum 1.01 mg/dL (0.52-1.25); POTASSIUM 3.8 mmol/L (3.4-5.0)
[2017-01-12 14:52] VITALS: BP 117/71; PULSE 73; TEMP 99
[2017-01-12] MEDS ORDERED: LEVBID0.375 MG PO (16:43)
[2017-01-12 17:26] LABS: ARTERIAL BLD GAS O2 SATURATION 96.4 % (92-100); ARTERIAL BLD GAS TCO2 CT 17.3; ARTERIAL BLOOD GAS BASE EXCESS -6.3 (-2-2); ARTERIAL BLOOD GAS HCO3 16.5 meq/L (22-26); ARTERIAL BLOOD GAS PHT 7.42 C (7.35-7.45); ARTERIAL BLOOD GAS PO2 83.7 mmHg (80-100); ARTERIAL BLOOD GAS PO2T 83.7 (80-100); ARTERIAL BLOOD GAS pH 7.42 (7.35-7.45); OXYHEMOGLOBIN 96.1 %
[2017-01-12 17:27] LABS: ATS? YES
[2017-01-12 18:14] VITALS: BP 120/77; PULSE 65; TEMP 98.2
[2017-01-13 00:07] VITALS: BP 131/75; PULSE 70; TEMP 98.2
[2017-01-13 04:37] VITALS: BP 106/68; PULSE 68; TEMP 98
[2017-01-13 07:19] LABS: BASO # 0.1 (0.0-0.2); BASO % 0.6 % (0.0-2.0); EOS # 0.3 (0.0-0.7); EOS % 2.2 % (0-4.0); GRAN # 9.2 (1.4-6.5); GRAN % 63.3 % (42.2-75.2); LYMPH # 3.8 (1.2-3.4); LYMPH % 26.3 % (20.0-51.0); MEAN CELL VOLUME 91 fl (80.0-100.0); MEAN CORPUSCULAR HEMOGLOBIN 30 pg (27.0-31.0); MEAN CORPUSCULAR HGB CONC 33 g/dl (33.0-37.0); MEAN PLATELET VOLUME 10.3 fl (7.4-10.4); PLATELET COUNT 326 K/mm3 (130-400); RED BLOOD COUNT 4.03 M/mm3 (4.10-5.30); REDCELL DISTRIBUTION WIDTH-CV 15.7 % (11.5-14.5); WHITE BLOOD COUNT 14.5 K/mm3 (4.8-10.8)
[2017-01-13 07:26] VITALS: BP 113/58; PULSE 69; TEMP 98.1
[2017-01-13 07:28] LABS: CALCIUM 8.2 mg/dL (8.4-10.2); CREATININE, serum 0.96 mg/dL (0.52-1.25); HEMATOCRIT 36.7 % (37.0-47.0); POTASSIUM 3.6 mmol/L (3.4-5.0)
[2017-01-13] MEDS ORDERED: ZOFRAN 4MG T4 MG/TAB PO (10:34)
[2017-01-13 10:58] VITALS: BP 120/61; PULSE 62; TEMP 97.9
== END 2017-01-13 14:34 | disposition home or self-care (01) ==
LOC: COL.ER 13:31 → MEDICAL 17:22
PROVIDERS: Family Medicine; Physician Assistant
DX: K29.50 Unspecified chronic gastritis without bleeding (principal); K21.0 Gastro-esophageal reflux disease with esophagitis; K44.9 Diaphragmatic hernia without obstruction or gangrene; K64.0 First degree hemorrhoids; I25.10 Atherosclerotic heart disease of native coronary artery without angina pectoris; I10 Essential (primary) hypertension; E86.0 Dehydration; K22.70 Barrett's esophagus without dysplasia; M19.90 Unspecified osteoarthritis, unspecified site; I25.2 Old myocardial infarction; Z95.5 Presence of coronary angioplasty implant and graft; Z90.710 Acquired absence of both cervix and uterus; Z90.49 Acquired absence of other specified parts of digestive tract; Z90.722 Acquired absence of ovaries, bilateral; Z83.79 Family history of other diseases of the digestive system
CPT/HCPCS: 99223-AI; 99232-AI; 99239; G0378; J1170; J1650; J2405; J2704; J2765; J2930; J7030

== ENCOUNTER 2017-02-07 01:04 | Emergency (ER) | payer MEDICARE ==
[~2017-02-07] VITALS: Ht 154.9 cm; Wt 91.4 kg
[~2017-02-07 01:04] MED LIST changes: +LEVBID0.375 MG PO
[2017-02-07 02:13] LABS: BASO # 0.1 (0.0-0.2); BASO % 0.5 % (0.0-2.0); EOS # 0.2 (0.0-0.7); EOS % 1.2 % (0-4.0); GRAN # 9.4 (1.4-6.5); GRAN % 64.6 % (42.2-75.2); HEMATOCRIT 39.1 % (37.0-47.0); HEMOGLOBIN 13.1 g/dl (12.5-16.0); LYMPH # 3.9 (1.2-3.4); LYMPH % 26.6 % (20.0-51.0); MEAN CELL VOLUME 89 fl (80.0-100.0); MEAN CORPUSCULAR HEMOGLOBIN 30 pg (27.0-31.0); MEAN CORPUSCULAR HGB CONC 34 g/dl (33.0-37.0); MEAN PLATELET VOLUME 9.7 fl (7.4-10.4); MONO % 6.6 % (1.7-9.3); PLATELET COUNT 433 K/mm3 (130-400); RED BLOOD COUNT 4.38 M/mm3 (4.10-5.30); REDCELL DISTRIBUTION WIDTH-CV 14.1 % (11.5-14.5); WHITE BLOOD COUNT 14.6 K/mm3 (4.8-10.8)
[2017-02-07 02:26] LABS: CREATININE, serum 1.16 mg/dL (0.52-1.25); POTASSIUM 3.4 mmol/L (3.4-5.0)
[2017-02-07 02:27] LABS: CALCIUM 9.3 mg/dL (8.4-10.2)
[2017-02-07 02:28] LABS: ADJUSTED CALCIUM 9.3 mg/dL (8.4-10.2); BILIRUBIN,TOTAL 0.4 mg/dL (0.0-1.0); TOTAL PROTEIN 7.2 gm/dL (6.4-8.2)
[2017-02-07 02:48] LABS: INR 1.1 (0.8-3.0); PROTHROMBIN TIME 12.2 SECONDS (9.7-12.8)
[2017-02-07 02:50] LABS: PARTIAL THROMBOPLASTIN TIME 33.8 SECONDS (26.0-37.0)
[2017-02-07] MEDS ORDERED: ZITHROMAX500 M2 PO (03:42)
[2017-02-07 04:26] VITALS: BP 108/75; PULSE 85; TEMP 97.9
== END 2017-02-07 04:25 | disposition home or self-care (01) ==
LOC: COL.ER 01:04
PROVIDERS: Emergency Medicine
DX: J20.9 Acute bronchitis, unspecified (principal); I10 Essential (primary) hypertension; I25.10 Atherosclerotic heart disease of native coronary artery without angina pectoris; K50.90 Crohn's disease, unspecified, without complications; Z95.5 Presence of coronary angioplasty implant and graft; Z90.49 Acquired absence of other specified parts of digestive tract; Z90.710 Acquired absence of both cervix and uterus; Z90.89 Acquired absence of other organs; Z98.890 Other specified postprocedural states; Z79.82 Long term (current) use of aspirin
CPT/HCPCS: J0696; J2765; J3010; J7030

== ENCOUNTER 2017-03-08 15:30 | Emergency (ER) | payer MEDICARE ==
[~2017-03-08] VITALS: Ht 154.9 cm; Wt 100.0 kg
[~2017-03-08 15:30] MED LIST changes: +ZITHROMAX500 M2 PO
[2017-03-08 15:42] VITALS: TEMP 99.9
[2017-03-08 18:03] VITALS: BP 114/87
[2017-03-08] MEDS ORDERED: PERCOCET 325 MG1 TA2 PO (18:44)
[2017-03-08 19:07] VITALS: PULSE 102
== END 2017-03-08 19:07 | disposition home or self-care (01) ==
LOC: COL.ER 15:30
DX: S83.92XA Sprain of unspecified site of left knee, initial encounter (principal); K50.90 Crohn's disease, unspecified, without complications; I25.10 Atherosclerotic heart disease of native coronary artery without angina pectoris; I10 Essential (primary) hypertension; E78.5 Hyperlipidemia, unspecified; Z79.82 Long term (current) use of aspirin; I25.2 Old myocardial infarction; X50.1XXA Overexertion from prolonged static or awkward postures, initial encounter; Y92.009 Unspecified place in unspecified non-institutional (private) residence as the place of occurrence of the external cause; Y93.01 Activity, walking, marching and hiking

== ENCOUNTER 2017-05-11 08:42 | Emergency (ER) | payer MEDICARE ==
[~2017-05-11] VITALS: Ht 154.9 cm; Wt 95.5 kg
[2017-05-11 08:46] VITALS: TEMP 99.4
[2017-05-11 10:11] LABS: BASO # 0.1 (0.0-0.2); BASO % 0.7 % (0.0-2.0); EOS # 0.2 (0.0-0.7); EOS % 1.7 % (0-4.0); GRAN # 9.3 (1.4-6.5); GRAN % 68.6 % (42.2-75.2); HEMATOCRIT 38.6 % (37.0-47.0); HEMOGLOBIN 12.8 g/dl (12.5-16.0); LYMPH # 3.1 (1.2-3.4); LYMPH % 22.9 % (20.0-51.0); MEAN CELL VOLUME 87 fl (80.0-100.0); MEAN CORPUSCULAR HEMOGLOBIN 29 pg (27.0-31.0); MEAN CORPUSCULAR HGB CONC 33 g/dl (33.0-37.0); MEAN PLATELET VOLUME 9.5 fl (7.4-10.4); MONO # 0.8 (0.1-0.6); MONO % 5.7 % (1.7-9.3); PLATELET COUNT 393 K/mm3 (130-400); RED BLOOD COUNT 4.44 M/mm3 (4.10-5.30); REDCELL DISTRIBUTION WIDTH-CV 14.9 % (11.5-14.5)
[2017-05-11 10:37] LABS: ALANINE AMINOTRANSFERASE 42 U/L (9-52); ALKALINE PHOSPHATASE 103 U/L (50-136); ANION GAP 13 mmol/L (7-16); AST,SGOT 27 U/L (15-37); BILIRUBIN,TOTAL 0.5 mg/dL (0.0-1.0); BLOOD UREA NITROGEN 18 mg/dL (7-17); CALCIUM 9.1 mg/dL (8.4-10.2); CARBON DIOXIDE 18 mmol/L (22-30); CHLORIDE 110 mmol/L (98-107); CREATININE, serum 1.02 mg/dL (0.52-1.25); GLUCOSE 106 mg/dL (74-106); LIPASE 323 U/L (23-300); POTASSIUM 3.8 mmol/L (3.4-5.0); SODIUM 140 mmol/L (137-145)
[2017-05-11 10:51] LABS: TROPONIN-I < 0.012 ng/mL (0.000-0.034)
[2017-05-11] MEDS ORDERED: PREDNISONE20 MG PO (11:49)
[2017-05-11] MEDS ORDERED: NORCO 325 MG-51 TAB PO (12:54)
[2017-05-11 13:02] VITALS: BP 127/85; PULSE 78
== END 2017-05-11 12:58 | disposition home or self-care (01) ==
LOC: COL.ER 08:42
PROVIDERS: Physician Assistant
DX: R10.31 Right lower quadrant pain (principal); R19.7 Diarrhea, unspecified; I10 Essential (primary) hypertension; I25.10 Atherosclerotic heart disease of native coronary artery without angina pectoris; E78.5 Hyperlipidemia, unspecified; K50.90 Crohn's disease, unspecified, without complications; Z79.82 Long term (current) use of aspirin; Z87.39 Personal history of other diseases of the musculoskeletal system and connective tissue
CPT/HCPCS: J1170; J2405; J2765; J7030; J7512

== ENCOUNTER 2017-06-01 17:19 | Observation (INO) | payer MEDICARE ==
[~2017-06-01] VITALS: Ht 154.9 cm; Wt 108.2 kg
[2017-06-01 19:45] LABS: BASO # 0.1 (0.0-0.2); BASO % 0.4 % (0.0-2.0); EOS % 0.1 % (0-4.0); GRAN # 16.8 (1.4-6.5); GRAN % 89.9 % (42.2-75.2); HEMATOCRIT 44.3 % (37.0-47.0); HEMOGLOBIN 14.5 g/dl (12.5-16.0); LYMPH # 1.5 (1.2-3.4); LYMPH % 7.9 % (20.0-51.0); MEAN CELL VOLUME 88 fl (80.0-100.0); MEAN CORPUSCULAR HEMOGLOBIN 29 pg (27.0-31.0); MEAN CORPUSCULAR HGB CONC 33 g/dl (33.0-37.0); MEAN PLATELET VOLUME 9.5 fl (7.4-10.4); MONO # 0.2 (0.1-0.6); MONO % 1.2 % (1.7-9.3); PLATELET COUNT 446 K/mm3 (130-400); RED BLOOD COUNT 5.06 M/mm3 (4.10-5.30); REDCELL DISTRIBUTION WIDTH-CV 15.4 % (11.5-14.5)
[2017-06-01 19:56] LABS: ALANINE AMINOTRANSFERASE 35 U/L (9-52); ALKALINE PHOSPHATASE 129 U/L (50-136); ANION GAP 16 mmol/L (7-16); AST,SGOT 25 U/L (15-37); BILIRUBIN,TOTAL 0.6 mg/dL (0.0-1.0); BLOOD UREA NITROGEN 20 mg/dL (7-17); CALCIUM 10.5 mg/dL (8.4-10.2); CARBON DIOXIDE 17 mmol/L (22-30); CHLORIDE 106 mmol/L (98-107); CREATININE, serum 1.02 mg/dL (0.52-1.25); GLUCOSE 139 mg/dL (74-106); LIPASE 115 U/L (23-300); POTASSIUM 4.5 mmol/L (3.4-5.0); SODIUM 139 mmol/L (137-145); TOTAL PROTEIN 8.6 gm/dL (6.4-8.2)
[2017-06-01 20:05] LABS: TROPONIN-I < 0.012 ng/mL (0.000-0.034)
[2017-06-01 20:39] LABS: COLLECTION METHOD CLEAN CATCH
[2017-06-01 20:46] LABS: MUCOUS Present /lpf; PH 5 (5-8); URINE APPEARANCE Hazy; URINE BACTERIA Rare /hpf; URINE BILIRUBIN Negative (NEGATIVE); URINE BLOOD Negative (NEGATIVE); URINE COLOR Yellow; URINE GLUCOSE Negative (NEGATIVE); URINE KETONE Negative (NEGATIVE); URINE LEUKOCYTE ESTERASE Trace (NEGATIVE); URINE NITRATE Negative (NEGATIVE); URINE PROTEIN(semi-quant) Negative (NEGATIVE); URINE RBC 0-2 /hpf; URINE UROBILINOGEN Negative (NEGATIVE)
[2017-06-02 00:58] VITALS: BP 108/66; PULSE 99; TEMP 98.2
[2017-06-02 01:01] VITALS: BP 108/66; PULSE 99; TEMP 98.2
[2017-06-02 04:16] LABS: BASO # 0.1 (0.0-0.2); BASO % 0.4 % (0.0-2.0); EOS % 0.2 % (0-4.0); GRAN # 15.1 (1.4-6.5); GRAN % 79.2 % (42.2-75.2); HEMATOCRIT 39.8 % (37.0-47.0); LYMPH # 2.7 (1.2-3.4); MEAN CELL VOLUME 88 fl (80.0-100.0); MEAN CORPUSCULAR HEMOGLOBIN 29 pg (27.0-31.0); MEAN CORPUSCULAR HGB CONC 33 g/dl (33.0-37.0); MEAN PLATELET VOLUME 10.7 fl (7.4-10.4); MONO # 1.1 (0.1-0.6); MONO % 5.7 % (1.7-9.3); PLATELET COUNT 389 K/mm3 (130-400); RED BLOOD COUNT 4.51 M/mm3 (4.10-5.30); REDCELL DISTRIBUTION WIDTH-CV 15.5 % (11.5-14.5)
[2017-06-02 04:21] LABS: CALCIUM 10.1 mg/dL (8.4-10.2); POTASSIUM 4.7 mmol/L (3.4-5.0)
[2017-06-02 08:08] VITALS: BP 134/69; PULSE 101; TEMP 97.8
[2017-06-02 11:09] VITALS: BP 118/69; PULSE 87; TEMP 98.4
[2017-06-02 15:47] VITALS: BP 113/65; PULSE 94; TEMP 98.2
[2017-06-02 20:36] VITALS: BP 105/64; PULSE 97; TEMP 98.5
[2017-06-03 00:16] VITALS: BP 107/62; PULSE 88; TEMP 98.4
[2017-06-03 04:35] VITALS: BP 92/56; PULSE 81; TEMP 98
[2017-06-03 06:46] LABS: BASO # 0.1 (0.0-0.2); BASO % 0.5 % (0.0-2.0); EOS # 0.3 (0.0-0.7); EOS % 2.1 % (0-4.0); GRAN # 8.8 (1.4-6.5); GRAN % 65.1 % (42.2-75.2); HEMATOCRIT 38.9 % (37.0-47.0); HEMOGLOBIN 12.5 g/dl (12.5-16.0); LYMPH # 3.6 (1.2-3.4); LYMPH % 26.4 % (20.0-51.0); MEAN CELL VOLUME 90 fl (80.0-100.0); MEAN CORPUSCULAR HEMOGLOBIN 29 pg (27.0-31.0); MEAN CORPUSCULAR HGB CONC 32 g/dl (33.0-37.0); MEAN PLATELET VOLUME 9.9 fl (7.4-10.4); MONO # 0.7 (0.1-0.6); MONO % 5.5 % (1.7-9.3); PLATELET COUNT 398 K/mm3 (130-400); RED BLOOD COUNT 4.33 M/mm3 (4.10-5.30); REDCELL DISTRIBUTION WIDTH-CV 15.9 % (11.5-14.5)
[2017-06-03 07:03] LABS: CREATININE, serum 1.21 mg/dL (0.52-1.25); POTASSIUM 3.8 mmol/L (3.4-5.0)
[2017-06-03 07:56] VITALS: BP 116/66; PULSE 89; TEMP 98.2
[2017-06-03 12:03] VITALS: BP 106/56; PULSE 81; TEMP 98.4
== END 2017-06-03 17:00 | disposition home or self-care (01) ==
LOC: COL.ER 17:19 → MEDICAL 21:39
PROVIDERS: Emergency Medicine; Nurse Practitioner; Nurse Practitioner Family
DX: R07.9 Chest pain, unspecified (principal); R00.0 Tachycardia, unspecified; D72.829 Elevated white blood cell count, unspecified; K50.90 Crohn's disease, unspecified, without complications; I25.10 Atherosclerotic heart disease of native coronary artery without angina pectoris; Z95.5 Presence of coronary angioplasty implant and graft; I10 Essential (primary) hypertension; M19.90 Unspecified osteoarthritis, unspecified site; K22.70 Barrett's esophagus without dysplasia; Z87.442 Personal history of urinary calculi; Z79.82 Long term (current) use of aspirin; Z88.8 Allergy status to other drugs, medicaments and biological substances; Z88.5 Allergy status to narcotic agent; Z88.6 Allergy status to analgesic agent; Z88.4 Allergy status to anesthetic agent
CPT/HCPCS: A9284; C9113; G0378; J0696; J1170; J1644; J2405; J3010; J7030; J7050; Q9967

== ENCOUNTER 2017-07-07 20:24 | Emergency (ER) | payer MEDICARE ==
[~2017-07-07] VITALS: Ht 154.9 cm; Wt 100.0 kg
[2017-07-07 20:35] VITALS: BP 125/71; TEMP 99.1
[2017-07-07 22:06] VITALS: PULSE 102
== END 2017-07-07 22:06 | disposition home or self-care (01) ==
LOC: COL.ER 20:24
DX: S86.912A Strain of unspecified muscle(s) and tendon(s) at lower leg level, left leg, initial encounter (principal); I25.10 Atherosclerotic heart disease of native coronary artery without angina pectoris; W19.XXXA Unspecified fall, initial encounter; X50.0XXA Overexertion from strenuous movement or load, initial encounter
CPT/HCPCS: J1200; J2270

== ENCOUNTER 2017-08-13 19:41 | Emergency (ER) | payer MEDICARE ==
[~2017-08-13] VITALS: Ht 157.5 cm; Wt 100.0 kg
[2017-08-13] MEDS ORDERED: EFFIENT10 MG PO (19:51)
[2017-08-13 20:14] LABS: BASO # 0.1 (0.0-0.2); BASO % 0.7 % (0.0-2.0); EOS # 0.1 (0.0-0.7); EOS % 0.9 % (0-4.0); GRAN # 10.8 (1.4-6.5); GRAN % 71.4 % (42.2-75.2); HEMATOCRIT 38.9 % (37.0-47.0); LYMPH # 3.2 (1.2-3.4); LYMPH % 21.3 % (20.0-51.0); MEAN CELL VOLUME 88 fl (80.0-100.0); MEAN CORPUSCULAR HEMOGLOBIN 29 pg (27.0-31.0); MEAN CORPUSCULAR HGB CONC 33 g/dl (33.0-37.0); MEAN PLATELET VOLUME 9.4 fl (7.4-10.4); MONO # 0.8 (0.1-0.6); MONO % 5.2 % (1.7-9.3); PLATELET COUNT 445 K/mm3 (130-400); RED BLOOD COUNT 4.44 M/mm3 (4.10-5.30); REDCELL DISTRIBUTION WIDTH-CV 14.9 % (11.5-14.5)
[2017-08-13 20:26] LABS: ALBUMIN 4.2 gm/dL (3.5-5.0); BILIRUBIN,TOTAL 0.3 mg/dL (0.0-1.0); C-REACTIVE PROTEIN 2.8 mg/dL (0.0-0.9); CALCIUM 9.3 mg/dL (8.4-10.2); CREATININE, serum 0.98 mg/dL (0.52-1.25); POTASSIUM 3.8 mmol/L (3.4-5.0)
[2017-08-13 20:35] LABS: ERYTHROCYTE SEDIMENTATION RATE 25 mm/hr (0-30)
[2017-08-13 21:27] VITALS: BP 124/80; PULSE 102; TEMP 99.2
== END 2017-08-13 21:00 | disposition home or self-care (01) ==
LOC: COL.ER 19:41
PROVIDERS: Family Medicine
DX: M17.12 Unilateral primary osteoarthritis, left knee (principal); K50.90 Crohn's disease, unspecified, without complications; Z79.82 Long term (current) use of aspirin
CPT/HCPCS: J1200; J2270

== ENCOUNTER 2017-09-21 21:22 | Emergency (ER) | payer MEDICARE ==
[~2017-09-21] VITALS: Ht 154.9 cm; Wt 97.7 kg
[2017-09-21 21:29] VITALS: TEMP 98.6
[2017-09-21] MEDS ORDERED: PHENERGAN 25 TA25 MG PO ×2 (22:08→23:17)
[2017-09-21 22:12] LABS: BASO # 0.1 (0.0-0.2); BASO % 0.6 % (0.0-2.0); EOS # 0.2 (0.0-0.7); EOS % 1.3 % (0-4.0); GRAN % 61.3 % (42.2-75.2); HEMATOCRIT 39.4 % (37.0-47.0); HEMOGLOBIN 13.2 g/dl (12.5-16.0); LYMPH # 4.7 (1.2-3.4); LYMPH % 28.5 % (20.0-51.0); MEAN CELL VOLUME 89 fl (80.0-100.0); MEAN CORPUSCULAR HEMOGLOBIN 30 pg (27.0-31.0); MEAN CORPUSCULAR HGB CONC 34 g/dl (33.0-37.0); MEAN PLATELET VOLUME 9.9 fl (7.4-10.4); MONO # 1.3 (0.1-0.6); PLATELET COUNT 448 K/mm3 (130-400); RED BLOOD COUNT 4.43 M/mm3 (4.10-5.30)
[2017-09-21 22:23] LABS: ALBUMIN 4.2 gm/dL (3.5-5.0); BILIRUBIN,TOTAL 0.5 mg/dL (0.0-1.0); C-REACTIVE PROTEIN 1.6 mg/dL (0.0-0.9); CALCIUM 9.3 mg/dL (8.4-10.2); CREATININE, serum 1.08 mg/dL (0.52-1.25); POTASSIUM 3.5 mmol/L (3.4-5.0); TOTAL PROTEIN 8.2 gm/dL (6.4-8.2)
[2017-09-21] MEDS ORDERED: LASIX 20MG TABL20 MG PO (22:31)
[2017-09-21] MEDS ORDERED: LIALDA 1.2 GM1.2 GM PO (22:32)
[2017-09-21] MEDS ORDERED: NITROSTAT0.3 MG SL (22:33)
[2017-09-21] MEDS ORDERED: IMODIUM 2MG CAPS2 MG PO (22:35)
[2017-09-21 22:37] LABS: COLLECTION METHOD CLEAN CATCH
[2017-09-21 22:42] LABS: MUCOUS Present /lpf; PH 6 (5-8); URINE APPEARANCE Clear; URINE BACTERIA Rare /hpf; URINE BILIRUBIN Negative (NEGATIVE); URINE BLOOD Negative (NEGATIVE); URINE COLOR Yellow; URINE GLUCOSE Negative (NEGATIVE); URINE KETONE Negative (NEGATIVE); URINE LEUKOCYTE ESTERASE Negative (NEGATIVE); URINE NITRATE Negative (NEGATIVE); URINE PROTEIN(semi-quant) Negative (NEGATIVE); URINE RBC 0-2 /hpf; URINE UROBILINOGEN Negative (NEGATIVE)
[2017-09-21 22:49] LABS: TRICYCLIC ANTIDEPRESS URINE NEGATIVE
[2017-09-21 23:14] VITALS: BP 128/85; PULSE 90
== END 2017-09-21 23:42 | disposition home or self-care (01) ==
LOC: COL.ER 21:22
PROVIDERS: Emergency Medicine
DX: R10.31 Right lower quadrant pain (principal); Z90.710 Acquired absence of both cervix and uterus; Z90.49 Acquired absence of other specified parts of digestive tract; Z90.89 Acquired absence of other organs; Z79.82 Long term (current) use of aspirin
CPT/HCPCS: J1200; J2270; J2765; J7030

== ENCOUNTER 2017-12-31 19:19 | Emergency (ER) | payer MEDICARE ==
[~2017-12-31] VITALS: Ht 157.5 cm; Wt 91.8 kg
[~2017-12-31 19:19] MED LIST changes: +LASIX 20MG TABL20 MG PO; +LIALDA 1.2 GM1.2 GM PO; +NITROSTAT0.3 MG SL
[2017-12-31 19:22] VITALS: BP 126/86; TEMP 99.1
[2017-12-31] MEDS ORDERED: DILAUDID 2MG TAB2 MG PO (19:49)
[2017-12-31] MEDS ORDERED: XARELTO15 MG PO (19:55)
[2017-12-31 20:19] LABS: BASO # 0.1 (0.0-0.2); BASO % 0.7 % (0.0-2.0); EOS # 0.2 (0.0-0.7); EOS % 1.4 % (0-4.0); GRAN # 8.5 (1.4-6.5); GRAN % 70.1 % (42.2-75.2); HEMOGLOBIN 11.4 g/dl (12.5-16.0); LYMPH # 2.7 (1.2-3.4); LYMPH % 22.1 % (20.0-51.0); MEAN CELL VOLUME 92 fl (80.0-100.0); MEAN CORPUSCULAR HEMOGLOBIN 30 pg (27.0-31.0); MEAN CORPUSCULAR HGB CONC 32 g/dl (33.0-37.0); MEAN PLATELET VOLUME 9.2 fl (7.4-10.4); MONO # 0.7 (0.1-0.6); MONO % 5.5 % (1.7-9.3); PLATELET COUNT 449 K/mm3 (130-400); RED BLOOD COUNT 3.81 M/mm3 (4.10-5.30); REDCELL DISTRIBUTION WIDTH-CV 15.6 % (11.5-14.5)
[2017-12-31 20:20] LABS: HEMATOCRIT 35.2 % (37.0-47.0)
[2017-12-31 20:26] LABS: CREATININE, serum 1.49 mg/dL (0.52-1.25); POTASSIUM 3.8 mmol/L (3.4-5.0)
[2017-12-31 20:40] LABS: INR 1.8 (0.8-3.0); PROTHROMBIN TIME 20.5 SECONDS (9.7-12.8)
[2017-12-31 20:43] LABS: PARTIAL THROMBOPLASTIN TIME 48.9 SECONDS (26.0-37.0)
[2017-12-31 23:45] VITALS: PULSE 102
== END 2017-12-31 23:45 | disposition home or self-care (01) ==
LOC: COL.ER 19:19
PROVIDERS: Emergency Medicine
DX: M25.562 Pain in left knee (principal); G89.29 Other chronic pain; K50.90 Crohn's disease, unspecified, without complications; I25.10 Atherosclerotic heart disease of native coronary artery without angina pectoris; Z79.891 Long term (current) use of opiate analgesic; Z79.01 Long term (current) use of anticoagulants; Z86.718 Personal history of other venous thrombosis and embolism
CPT/HCPCS: J1170

== ENCOUNTER 2018-03-02 18:24 | Emergency (ER) | payer MEDICARE ==
[~2018-03-02] VITALS: Ht 154.9 cm; Wt 122.7 kg
[~2018-03-02 18:24] MED LIST changes: +DILAUDID 2MG TAB2 MG PO; +XARELTO15 MG PO
[2018-03-02 18:27] VITALS: TEMP 98
[2018-03-02 20:40] LABS: COLLECTION METHOD CLEAN CATCH
[2018-03-02 20:49] LABS: BASO # 0.1 (0.0-0.2); BASO % 0.4 % (0.0-2.0); EOS # 0.1 (0.0-0.7); EOS % 0.9 % (0-4.0); GRAN # 10.8 (1.4-6.5); GRAN % 69.1 % (42.2-75.2); HEMATOCRIT 41.7 % (37.0-47.0); HEMOGLOBIN 13.6 g/dl (12.5-16.0); LYMPH # 3.5 (1.2-3.4); LYMPH % 22.4 % (20.0-51.0); MEAN CELL VOLUME 89 fl (80.0-100.0); MEAN CORPUSCULAR HEMOGLOBIN 29 pg (27.0-31.0); MEAN CORPUSCULAR HGB CONC 33 g/dl (33.0-37.0); MEAN PLATELET VOLUME 9.1 fl (7.4-10.4); MONO % 6.7 % (1.7-9.3); PLATELET COUNT 433 K/mm3 (130-400); RED BLOOD COUNT 4.68 M/mm3 (4.10-5.30); REDCELL DISTRIBUTION WIDTH-CV 14.5 % (11.5-14.5)
[2018-03-02 20:50] LABS: ALBUMIN 4.3 gm/dL (3.5-5.0); BILIRUBIN,TOTAL 0.3 mg/dL (0.0-1.0); C-REACTIVE PROTEIN 3.2 mg/dL (0.0-0.9); CALCIUM 9.4 mg/dL (8.4-10.2); CREATININE, serum 1.05 mg/dL (0.52-1.25); POTASSIUM 3.8 mmol/L (3.4-5.0); TOTAL PROTEIN 7.8 gm/dL (6.4-8.2)
[2018-03-02 20:52] LABS: MUCOUS Present /lpf; PH 5 (5-8); URINE APPEARANCE Hazy; URINE BACTERIA Rare /hpf; URINE BILIRUBIN Negative (NEGATIVE); URINE BLOOD Negative (NEGATIVE); URINE COLOR Yellow; URINE GLUCOSE Negative (NEGATIVE); URINE KETONE Negative (NEGATIVE); URINE LEUKOCYTE ESTERASE 1+ (NEGATIVE); URINE NITRATE Negative (NEGATIVE); URINE PROTEIN(semi-quant) Negative (NEGATIVE); URINE RBC 0-2 /hpf; URINE UROBILINOGEN Negative (NEGATIVE)
[2018-03-02] MEDS ORDERED: PREDNISONE10 MG PO (22:40)
[2018-03-02] MEDS ORDERED: ZOFRAN ODT4 MG PO (22:40)
[2018-03-02] MEDS ORDERED: PERCOCET 325 MG1 TA2 PO (22:40)
[2018-03-02] MEDS ORDERED: CIPRO 500MG TA500 MG PO (22:40)
[2018-03-02] MEDS ORDERED: FLAGYL500 MG PO (22:40)
[2018-03-03 00:08] VITALS: BP 118/69; PULSE 80
== END 2018-03-03 00:11 | disposition home or self-care (01) ==
LOC: COL.ER 18:24
PROVIDERS: Physician Assistant
DX: R10.31 Right lower quadrant pain (principal); R19.7 Diarrhea, unspecified; K50.90 Crohn's disease, unspecified, without complications
CPT/HCPCS: J2405; J3010; J7030; J7512; Q9967

== ENCOUNTER 2019-01-31 21:18 | Emergency (ER) | payer MEDICARE ==
[~2019-01-31] VITALS: Ht 152.4 cm; Wt 90.9 kg
[2019-01-31 21:21] VITALS: BP 147/78; TEMP 99
[2019-01-31] MEDS ORDERED: ASPIRIN 81M81 MG/TA2 PO (21:39)
[2019-01-31] MEDS ORDERED: XARELTO10 MG PO (22:09)
[2019-01-31] MEDS ORDERED: LASIX 20MG TABL20 MG PO (22:09)
[2019-01-31 22:16] LABS: COLLECTION METHOD CLEAN CATCH
[2019-01-31 22:19] LABS: BASO # 0.1 (0.0-0.2); BASO % 0.8 % (0.0-2.0); EOS # 0.2 (0.0-0.7); EOS % 1.7 % (0-4.0); GRAN # 8.9 (1.4-6.5); GRAN % 65.4 % (42.2-75.2); HEMATOCRIT 40.4 % (37.0-47.0); HEMOGLOBIN 13.4 g/dl (12.5-16.0); LYMPH # 3.4 (1.2-3.4); LYMPH % 25.3 % (20.0-51.0); MEAN CELL VOLUME 87 fl (80.0-100.0); MEAN CORPUSCULAR HEMOGLOBIN 29 pg (27.0-31.0); MEAN CORPUSCULAR HGB CONC 33 g/dl (33.0-37.0); MEAN PLATELET VOLUME 9.4 fl (7.4-10.4); MONO # 0.9 (0.1-0.6); MONO % 6.4 % (1.7-9.3); PLATELET COUNT 395 K/mm3 (130-400); RED BLOOD COUNT 4.65 M/mm3 (4.10-5.30); REDCELL DISTRIBUTION WIDTH-CV 14.3 % (11.5-14.5)
[2019-01-31 22:34] LABS: MUCOUS Present /lpf; PH 5 (5-8); URINE APPEARANCE Hazy; URINE BACTERIA Moderate /hpf; URINE BILIRUBIN Negative (NEGATIVE); URINE BLOOD Negative (NEGATIVE); URINE COLOR Yellow; URINE GLUCOSE Negative (NEGATIVE); URINE KETONE Negative (NEGATIVE); URINE LEUKOCYTE ESTERASE Negative (NEGATIVE); URINE NITRATE Negative (NEGATIVE); URINE PROTEIN(semi-quant) 1+ (NEGATIVE); URINE RBC 0-2 /hpf; URINE UROBILINOGEN Negative (NEGATIVE)
[2019-01-31 22:36] LABS: ALBUMIN 4.1 gm/dL (3.5-5.0); BILIRUBIN,TOTAL 0.1 mg/dL (0.0-1.0); C-REACTIVE PROTEIN 2.8 mg/dL (0.0-0.9); CREATININE, serum 1.21 (0.52-1.25); POTASSIUM 3.2 mmol/L (3.4-5.0); TOTAL PROTEIN 7.5 gm/dL (6.4-8.2)
[2019-01-31] MEDS ORDERED: PREDNISONE20 MG PO (23:30)
[2019-01-31] MEDS ORDERED: PHENERGAN 25 TA25 MG PO (23:39)
[2019-02-01 00:35] VITALS: PULSE 84
== END 2019-02-01 00:35 | disposition home or self-care (01) ==
LOC: COL.ER 21:18
PROVIDERS: Emergency Medicine
DX: R10.31 Right lower quadrant pain (principal); Z90.49 Acquired absence of other specified parts of digestive tract; Z90.89 Acquired absence of other organs; Z90.710 Acquired absence of both cervix and uterus; Z79.82 Long term (current) use of aspirin
CPT/HCPCS: J1170; J2550; J7030; J7512

== ENCOUNTER 2019-03-31 17:12 | Emergency (ER) | payer MEDICARE ==
[~2019-03-31] VITALS: Ht 154.9 cm; Wt 100.8 kg
[~2019-03-31 17:12] MED LIST changes: +XARELTO10 MG PO
[2019-03-31 17:21] VITALS: TEMP 99.2
[2019-03-31 18:23] LABS: COLLECTION METHOD CLEAN CATCH
[2019-03-31 18:27] LABS: BASO # 0.1 (0.0-0.2); BASO % 0.6 % (0.0-2.0); EOS # 0.2 (0.0-0.7); EOS % 1.6 % (0-4.0); GRAN # 7.9 (1.4-6.5); HEMATOCRIT 41.8 % (37.0-47.0); HEMOGLOBIN 13.8 g/dl (12.5-16.0); LYMPH # 3.6 (1.2-3.4); LYMPH % 28.1 % (20.0-51.0); MEAN CELL VOLUME 89 fl (80.0-100.0); MEAN CORPUSCULAR HEMOGLOBIN 30 pg (27.0-31.0); MEAN CORPUSCULAR HGB CONC 33 g/dl (33.0-37.0); MEAN PLATELET VOLUME 9.8 fl (7.4-10.4); MONO # 0.9 (0.1-0.6); MONO % 7.3 % (1.7-9.3); PLATELET COUNT 412 K/mm3 (130-400); RED BLOOD COUNT 4.68 M/mm3 (4.10-5.30); REDCELL DISTRIBUTION WIDTH-CV 14.5 % (11.5-14.5)
[2019-03-31 18:29] LABS: MUCOUS Present /lpf; PH 6 (5-8); URINE APPEARANCE Clear; URINE BACTERIA Rare /hpf; URINE BILIRUBIN Negative (NEGATIVE); URINE BLOOD Negative (NEGATIVE); URINE COLOR Yellow; URINE GLUCOSE Negative (NEGATIVE); URINE KETONE Negative (NEGATIVE); URINE LEUKOCYTE ESTERASE Negative (NEGATIVE); URINE NITRATE Negative (NEGATIVE); URINE PROTEIN(semi-quant) Negative (NEGATIVE); URINE RBC 0-2 /hpf; URINE UROBILINOGEN Negative (NEGATIVE)
[2019-03-31 18:44] LABS: ALANINE AMINOTRANSFERASE < 6 U/L (9-52); ALBUMIN 4.4 gm/dL (3.5-5.0); ALKALINE PHOSPHATASE 107 U/L (50-136); ANION GAP 11 mmol/L (7-16); AST,SGOT 30 U/L (15-37); BILIRUBIN,TOTAL 0.3 mg/dL (0.0-1.0); BLOOD UREA NITROGEN 19 mg/dL (7-17); CALCIUM 8.8 mg/dL (8.4-10.2); CARBON DIOXIDE 25 mmol/L (22-30); CHLORIDE 104 mmol/L (98-107); CREATININE, serum 1.39 (0.52-1.25); GLUCOSE 87 mg/dL (74-106); POTASSIUM 3.7 mmol/L (3.4-5.0); SODIUM 140 mmol/L (137-145); TOTAL PROTEIN 7.8 gm/dL (6.4-8.2)
[2019-03-31] MEDS ORDERED: PREDNISONE20 MG PO (19:11)
[2019-03-31] MEDS ORDERED: ZOFRAN ODT4 MG PO (19:11)
[2019-03-31] MEDS ORDERED: ULTRAM 50MG TAB50 MG PO (19:11)
[2019-03-31 19:27] LABS: ERYTHROCYTE SEDIMENTATION RATE 15 mm/hr (0-30)
[2019-03-31 20:40] VITALS: BP 125/67; PULSE 81
== END 2019-03-31 20:45 | disposition home or self-care (01) ==
LOC: COL.ER 17:12
PROVIDERS: Emergency Medicine
DX: K50.90 Crohn's disease, unspecified, without complications (principal); I25.10 Atherosclerotic heart disease of native coronary artery without angina pectoris; I10 Essential (primary) hypertension; I73.9 Peripheral vascular disease, unspecified; Z90.49 Acquired absence of other specified parts of digestive tract; Z95.5 Presence of coronary angioplasty implant and graft; Z90.710 Acquired absence of both cervix and uterus; Z98.890 Other specified postprocedural states
CPT/HCPCS: J1170; J2405; J2930; J7030

== ENCOUNTER 2019-09-12 20:38 | Emergency (ER) | payer MEDICARE ==
[~2019-09-12] VITALS: Ht 154.9 cm; Wt 100.0 kg
[~2019-09-12 20:38] MED LIST changes: +CQ10 PO; +K-DUR20 MEQ PO; +MELATONIN5 M1 SL
[2019-09-12 20:43] VITALS: TEMP 97.8
[2019-09-12 21:42] LABS: COLLECTION METHOD CLEAN CATCH
[2019-09-12 21:52] LABS: BASO # 0.1 (0.0-0.2); BASO % 0.4 % (0.0-2.0); EOS % 0.2 % (0-4.0); GRAN # 13.9 (1.4-6.5); GRAN % 74.1 % (42.2-75.2); HEMOGLOBIN 13.6 g/dl (12.5-16.0); LYMPH # 3.7 (1.2-3.4); LYMPH % 19.7 % (20.0-51.0); MEAN CELL VOLUME 90 fl (80.0-100.0); MEAN CORPUSCULAR HEMOGLOBIN 29 pg (27.0-31.0); MEAN CORPUSCULAR HGB CONC 32 g/dl (33.0-37.0); MEAN PLATELET VOLUME 9.4 fl (7.4-10.4); MONO # 0.8 (0.1-0.6); MONO % 4.4 % (1.7-9.3); PLATELET COUNT 420 K/mm3 (130-400); RED BLOOD COUNT 4.67 M/mm3 (4.10-5.30); REDCELL DISTRIBUTION WIDTH-CV 15.1 % (11.5-14.5)
[2019-09-12 21:56] LABS: MUCOUS Present /lpf; PH 6 (5-8); SQUAMOUS EPITHELIAL 0-2 /hpf; URINE APPEARANCE Clear; URINE BACTERIA Rare /hpf; URINE BILIRUBIN Negative (NEGATIVE); URINE BLOOD Negative (NEGATIVE); URINE COLOR Yellow; URINE GLUCOSE Negative (NEGATIVE); URINE KETONE Negative (NEGATIVE); URINE LEUKOCYTE ESTERASE Negative (NEGATIVE); URINE NITRATE Negative (NEGATIVE); URINE PROTEIN(semi-quant) Negative (NEGATIVE); URINE RBC 0-2 /hpf; URINE UROBILINOGEN Negative (NEGATIVE)
[2019-09-12 21:57] LABS: ALANINE AMINOTRANSFERASE 19 U/L (4-34); ALBUMIN 4.3 gm/dL (3.5-5.0); ALKALINE PHOSPHATASE 125 U/L (50-136); ANION GAP 8 mmol/L (7-16); AST,SGOT 28 U/L (15-37); BILIRUBIN,TOTAL 0.2 mg/dL (0.0-1.0); BLOOD UREA NITROGEN 22 mg/dL (7-17); C-REACTIVE PROTEIN 1.2 mg/dL (0.0-0.9); CALCIUM 9.2 mg/dL (8.4-10.2); CARBON DIOXIDE 21 mmol/L (22-30); CHLORIDE 109 mmol/L (98-107); CREATININE, serum 1.15 (0.52-1.25); GLUCOSE 111 mg/dL (74-106); LIPASE 154 U/L (23-300); POTASSIUM 4.3 mmol/L (3.4-5.0); SODIUM 138 mmol/L (137-145); TOTAL PROTEIN 7.5 gm/dL (6.4-8.2)
[2019-09-12 22:05] LABS: TROPONIN-I < 0.012 ng/mL (0.000-0.035)
[2019-09-12 22:42] VITALS: BP 117/63
[2019-09-12] MEDS ORDERED: ZOFRAN 4MG T4 MG/TAB PO (23:58)
[2019-09-12] MEDS ORDERED: NORCO 325 MG-51 TAB PO (23:58)
[2019-09-13] MEDS ORDERED: PREDNISONE20 MG PO (00:10)
[2019-09-13 00:25] VITALS: PULSE 64
== END 2019-09-13 00:18 | disposition home or self-care (01) ==
LOC: COL.ER 20:38
PROVIDERS: Emergency Medicine
DX: R10.9 Unspecified abdominal pain (principal); I25.10 Atherosclerotic heart disease of native coronary artery without angina pectoris; K50.90 Crohn's disease, unspecified, without complications; E66.9 Obesity, unspecified; R19.7 Diarrhea, unspecified; R11.0 Nausea; Z90.49 Acquired absence of other specified parts of digestive tract; Z98.890 Other specified postprocedural states; Z79.82 Long term (current) use of aspirin
CPT/HCPCS: J0500; J2270; J2405; J3010; J7030

== ENCOUNTER 2020-01-04 21:36 | Emergency (ER) | payer MEDICARE ==
[~2020-01-04] VITALS: Ht 154.9 cm; Wt 97.3 kg
[2020-01-04 21:45] VITALS: TEMP 98.6
[2020-01-04 22:27] LABS: COLLECTION METHOD CLEAN CATCH
[2020-01-04] MEDS ORDERED: XARELTO20 MG PO (22:27)
[2020-01-04 22:47] LABS: MUCOUS Present /lpf; PH 5 (5-8); URINE APPEARANCE Hazy; URINE BACTERIA Moderate /hpf; URINE BILIRUBIN Negative (NEGATIVE); URINE BLOOD Negative (NEGATIVE); URINE COLOR Yellow; URINE GLUCOSE Negative (NEGATIVE); URINE KETONE Negative (NEGATIVE); URINE LEUKOCYTE ESTERASE Negative (NEGATIVE); URINE NITRATE Negative (NEGATIVE); URINE PROTEIN(semi-quant) Negative (NEGATIVE); URINE RBC 0-2 /hpf; URINE UROBILINOGEN Negative (NEGATIVE)
[2020-01-04 23:10] LABS: BASO # 0.1 (0.0-0.2); BASO % 0.5 % (0.0-2.0); EOS % 0.1 % (0-4.0); GRAN # 12.4 (1.4-6.5); GRAN % 84.8 % (42.2-75.2); HEMATOCRIT 42.9 % (37.0-47.0); HEMOGLOBIN 14.1 g/dl (12.5-16.0); LYMPH # 1.9 (1.2-3.4); LYMPH % 13.1 % (20.0-51.0); MEAN CELL VOLUME 89 fl (80.0-100.0); MEAN CORPUSCULAR HEMOGLOBIN 29 pg (27.0-31.0); MEAN CORPUSCULAR HGB CONC 33 g/dl (33.0-37.0); MEAN PLATELET VOLUME 9.6 fl (7.4-10.4); MONO # 0.1 (0.1-0.6); MONO % 0.8 % (1.7-9.3); PLATELET COUNT 410 K/mm3 (130-400); RED BLOOD COUNT 4.81 M/mm3 (4.10-5.30); REDCELL DISTRIBUTION WIDTH-CV 14.1 % (11.5-14.5)
[2020-01-04 23:19] LABS: ALBUMIN 4.5 gm/dL (3.5-5.0); BILIRUBIN,TOTAL 0.2 mg/dL (0.0-1.0); C-REACTIVE PROTEIN 1.5 mg/dL (0.0-0.9); CALCIUM 9.4 mg/dL (8.4-10.2); CREATININE, serum 1.52 (0.52-1.25); POTASSIUM 4.3 mmol/L (3.4-5.0); TOTAL PROTEIN 7.7 gm/dL (6.4-8.2)
[2020-01-04] MEDS ORDERED: ZOFRAN ODT8 MG PO (23:40)
[2020-01-05] MEDS ORDERED: MEDROL 4MG DOSPA4 MG PO (00:17)
[2020-01-05 00:23] VITALS: BP 136/83; PULSE 85
== END 2020-01-05 00:21 | disposition home or self-care (01) ==
LOC: COL.ER 21:36
PROVIDERS: Family Medicine
DX: R10.31 Right lower quadrant pain (principal); R19.7 Diarrhea, unspecified; R11.2 Nausea with vomiting, unspecified; Z79.01 Long term (current) use of anticoagulants; Z90.49 Acquired absence of other specified parts of digestive tract; Z88.6 Allergy status to analgesic agent; Z88.2 Allergy status to sulfonamides; Z88.8 Allergy status to other drugs, medicaments and biological substances; Z79.82 Long term (current) use of aspirin
CPT/HCPCS: J1100; J1170; J2270; J2405; J7120

== ENCOUNTER 2020-03-21 18:16 | Emergency (ER) | payer MEDICARE ==
[~2020-03-21] VITALS: Ht 154.9 cm; Wt 97.3 kg
[~2020-03-21 18:16] MED LIST changes: +XARELTO20 MG PO; +ZOFRAN ODT8 MG PO
[2020-03-21 19:36] LABS: BASO # 0.1 (0.0-0.2); BASO % 0.7 % (0.0-2.0); EOS # 0.2 (0.0-0.7); GRAN # 10.6 (1.4-6.5); GRAN % 62.8 % (42.2-75.2); HEMATOCRIT 43.8 % (37.0-47.0); HEMOGLOBIN 14.7 g/dl (12.5-16.0); LYMPH # 4.7 (1.2-3.4); LYMPH % 27.8 % (20.0-51.0); MEAN CELL VOLUME 87 fl (80.0-100.0); MEAN CORPUSCULAR HEMOGLOBIN 29 pg (27.0-31.0); MEAN CORPUSCULAR HGB CONC 34 g/dl (33.0-37.0); MEAN PLATELET VOLUME 9.3 fl (7.4-10.4); MONO # 1.2 (0.1-0.6); MONO % 7.3 % (1.7-9.3); PLATELET COUNT 411 K/mm3 (130-400); RED BLOOD COUNT 5.01 M/mm3 (4.10-5.30); REDCELL DISTRIBUTION WIDTH-CV 14.2 % (11.5-14.5)
[2020-03-21 19:45] LABS: INR 1.5 (0.8-3.0); PROTHROMBIN TIME 17.2 SECONDS (9.7-12.8)
[2020-03-21 19:48] LABS: PARTIAL THROMBOPLASTIN TIME 47.1 SECONDS (26.0-37.0)
[2020-03-21 19:51] LABS: ALBUMIN 4.5 gm/dL (3.5-5.0); BILIRUBIN,TOTAL 0.5 mg/dL (0.0-1.0); C-REACTIVE PROTEIN 2.5 mg/dL (0.0-0.9); CALCIUM 9.5 mg/dL (8.4-10.2); CREATININE, serum 1.24 (0.52-1.25); POTASSIUM 3.6 mmol/L (3.4-5.0); TOTAL PROTEIN 7.8 gm/dL (6.4-8.2)
[2020-03-21 19:57] LABS: D-DIMER < 200.00 ng/mLDDu (200-230)
[2020-03-21 20:35] VITALS: BP 148/64; PULSE 84; TEMP 98.1
== END 2020-03-21 20:36 | disposition home or self-care (01) ==
LOC: COL.ER 18:16
PROVIDERS: Emergency Medicine
DX: M79.672 Pain in left foot (principal); M25.572 Pain in left ankle and joints of left foot; I25.10 Atherosclerotic heart disease of native coronary artery without angina pectoris; Z86.718 Personal history of other venous thrombosis and embolism; Z95.5 Presence of coronary angioplasty implant and graft; Z79.82 Long term (current) use of aspirin; Z88.6 Allergy status to analgesic agent; Z88.2 Allergy status to sulfonamides; Z88.4 Allergy status to anesthetic agent; Z88.8 Allergy status to other drugs, medicaments and biological substances; Z79.01 Long term (current) use of anticoagulants